=== PATIENT | female | born 1995 | race Caucasian/White ===

== ENCOUNTER 2022-09-24 17:39 | Outpatient (CLI) | payer OTHER, SELFPAY ==
[2022-09-24 17:48] VITALS: PULSE 92; O2SAT 98
[2022-09-24 17:51] VITALS: BP 117/69; PULSE 93; RESP 16; TEMP 36.9; O2SAT 98
--- NOTE | 2022-09-24 18:39 | PC.OBNST ---
NST Note NST Note Start: 09/24/22 17:42 Freq: ONCE Status: Active Protocol: Document 09/24/22 18:25 CUDDYH (Rec: 09/24/22 18:38 CUDDYH [id number]) NST Note 4 Para (# of births) 1 EDC 11/12/22 Gestational Age In Weeks & Days 33 Weeks & 0 Days High Risk Factors Diabetes - Gestational Insulin Patient Presented with Complaint(s) of Decreased movement Reactive Yes Appropriate for Gestational Age Yes RN Hcuddy Date 09/24/22 Reactive Yes Appropriate for Gestational Age Yes RN WKlotter Date 09/24/22 OB NST charge Yes Complete NST Note via Write Note Yes The provider's electronic signature indicates the NST is reactive/appropriate for gestational age. *Note to provider: If an addendum is required, open the patient's chart and click on the note under the Nurse/Allied Health tab.
== END 2022-09-24 18:25 | disposition home or self-care (01) ==
LOC: OB OUT 17:39 → OB 17:40
PROVIDERS: PCP Family Medicine; Visit Provider Family Medicine
DX: O36.8130 Decreased fetal movements, third trimester, not applicable or unspecified (principal); Z3A.33 33 weeks gestation of pregnancy
CPT/HCPCS: 59025; 99213

== ENCOUNTER 2022-10-06 19:11 | Outpatient (CLI) | payer OTHER, SELFPAY ==
[2022-10-06] VITALS (9 sets, daily range): BP systolic 103–116; BP diastolic 66–72; PULSE 90–104; RESP 16; TEMP 37.1; O2SAT 98
[2022-10-06 19:48] LABS: Basophils Percent Auto 0.3 % (0.0-3.0); Eosinophils Percent Auto 0.5 % (0.0-7.0); Hematocrit 34.7 % (33.0-51.0); Hemoglobin* 11.6 gm/dL (12.0-16.0); Immature Granulocytes Pct Auto 2.3 %; Mean Corpuscular HGB Conc 33 gm/dL (32-36); Mean Corpuscular Hemoglobin 28 pg (26-34); Mean Corpuscular Volume 85 fL (80-100); Monocytes Percent Auto 9.2 % (0.0-11.0); Neutrophils Percent Auto 71.7 % (42.0-72.0); Platelet Count* 267 K/uL (140-440); RDW Coefficient of Variation % 13.5 % (11.5-15.5); Red Blood Count 4.09 m/uL (4.00-5.20); Slide Review Reflex No
[2022-10-06 20:17] LABS: Alanine Aminotransferase* 61 U/L (4-35); Aspartate Amino Transferase* 35 U/L (12-35); Blood Urea Nitrogen* 11 mg/dL (5-24); Creatinine* 0.4 mg/dL (0.5-1.5); Estimated Glomerular Filt Rate 137 ml/min
[2022-10-06 20:32] LABS: Creatinine Urine 90.1 mg/dL; Total Protein Urine 20 mg/dL
--- NOTE | 2022-10-06 21:45 | PC.OBNST ---
NST Note NST Note Start: 10/06/22 19:23 Freq: ONCE Status: Active Protocol: Document 10/06/22 21:41 AVL (Rec: 10/06/22 21:44 AVL [id number]) NST Note 4 Para (# of births) 1 EDC 11/12/22 Gestational Age In Weeks & Days 34 Weeks & 5 Days High Risk Factors Diabetes - Gestational Insulin Patient Presented with Complaint(s) of Pain If Pain, describe location RUQ pain, epigastric Other Complaints Elevated labs, monitoring labs for HELLP Reactive Yes Appropriate for Gestational Age Yes RADHA Davenport RN Date 10/06/22 Reactive Yes Appropriate for Gestational Age Yes RADHA Lee RN Date 10/06/22 OB NST charge Yes Complete NST Note via Write Note Yes The provider's electronic signature indicates the NST is reactive/appropriate for gestational age. *Note to provider: If an addendum is required, open the patient's chart and click on the note under the Nurse/Allied Health tab.
== END 2022-10-06 21:24 | disposition home or self-care (01) ==
LOC: OB OUT 19:13 → OB 19:14
PROVIDERS: PCP Family Medicine; Visit Provider Surgery
DX: O24.419 Gestational diabetes mellitus in pregnancy, unspecified control (principal); Z3A.34 34 weeks gestation of pregnancy
CPT/HCPCS: 36415; 59025; 82565; 82570; 84156; 84450; 84460; 84520; 85025; 99213

== ENCOUNTER 2022-10-14 14:41 | Outpatient (CLI) | payer OTHER, SELFPAY ==
[2022-10-14] VITALS (25 sets, daily range): BP systolic 101–125; BP diastolic 60–81; PULSE 83–100; RESP 16; TEMP 36.7–37; O2SAT 97–98
[2022-10-14 15:40] LABS: Hemoglobin* 11.5 gm/dL (12.0-16.0); Mean Corpuscular HGB Conc 34 gm/dL (32-36); Mean Corpuscular Hemoglobin 29 pg (26-34); Mean Corpuscular Volume 84 fL (80-100); Platelet Count* 239 K/uL (140-440); Red Blood Count 4.03 m/uL (4.00-5.20); White Blood Count* 11.97 K/uL (4.50-11.00)
[2022-10-14] MEDS: PROMETHAZINE 25 MG TABLET PO (15:40)
[2022-10-14 15:56] LABS: Slide Review Reflex No
[2022-10-14 16:19] LABS: Total Protein Urine 16 mg/dL
[2022-10-14 16:21] LABS: Creatinine Urine 162.1 mg/dL
[2022-10-14 16:38] LABS: Alanine Aminotransferase* 68 U/L (4-35); Aspartate Amino Transferase* 47 U/L (12-35); Blood Urea Nitrogen* 11 mg/dL (5-24); Creatinine* 0.4 mg/dL (0.5-1.5); Estimated Glomerular Filt Rate 137 ml/min
[2022-10-14 16:47] LABS: INR 0.95 (0.91-1.10); Prothrombin Time 13.2 Seconds
[2022-10-14 17:13] LABS: Fibrinogen* 572 mg/dL (200-450)
[2022-10-14] MEDS: LACTATED RINGERS 1000 ML 1,000 ML 125 ML IV (18:03)
--- NOTE | 2022-10-14 18:10 | CRLHL7_ITS ---
For Patients: As a result of the Century Cures Act, medical imaging exams and procedure reports are released immediately into your electronic medical record. You may view this report before your referring provider. If you have questions, please contact your health care provider. HISTORY: Chest pressure COMPARISON: None available FINDINGS: A portable erect AP view of the chest was obtained at 1827 hours. The lungs are clear. No focal or diffuse infiltrates are present. The heart is normal in size. The mediastinum is normal in appearance. The osseous structures are normal in appearance for the patient`s age. IMPRESSION: Normal portable chest single view. Dictated by Kenny Henriquez MD @ 10/14/2022 7:19:31 PM (Electronically Signed)
--- NOTE | 2022-10-14 18:14 | PM.OBHPAP1 ---
OB - H&P; HPI Antepartum History of Present Illness Time Seen by Provider: 18:14 Date Seen: 10/14/22 Chief complaint: Maternity Narrative: Migdalia Cristobal is a 27 year old female at 35w6d who presents with headache from clinic. Patient has been having intermittent RUQ abdominal pain. She has had mildly elevated LFTs. Had a normal gallbladder US last week. She presented with a 3 day presentation of headache, unresolved by tylenol. Patient reports her Headache has been bothersome x 3 days. She has also had intermittent chest pressure and difficulty breathing. She has attributed this to her anxiety, but also worries she could be missing something. Denies edema or leg pain. She, during triage also developed mild tunnel vision like her peripheral vision was becoming blurry. She states her headache is worsening. Her chest pressure feels like there is something on her chest. It feels best to take a deep breath and hold it. She feels dizzy, not quite like vertigo, but like she might develop this. She has mild nausea. History of Present Dating criteria: other (11 week ultrasound) care: good care Ultrasounds: abnormal US findings Abnormal ultrasound findings: low lying placenta, possible accessory placental lobe complications comment: Patient had 2 miscarriages. ?Most recent one had partial molar pathology re Labs Blood type: O (+) positive Rubella: immune RPR/VDLR: nonreactive GBS status: unknown HBsAG: negative Review of Systems Status of ROS: Reports: 10 or more systems reviewed and unremarkable except as noted in History and below Const: Reports: fatigue; Denies: fever or chills Eyes: Reports: change in vision and blurry vision; Denies: light sensitivity ENMT: Reports: vertigo; Denies: throat pain, neck pain, throat swelling or difficulty swallowing Cardio: Reports: chest pain; Denies: palpitations, edema, swelling of feet/ankles or shortness of breath with exertion Resp: Denies: shortness of breath, cough, wheezing or pain on inspiration GI: Reports: abdominal pain (RUQ) and nausea; Denies: vomiting or difficulty swallowing : Denies: urinary frequency, urinary urgency, difficulty voiding, vaginal bleeding or vaginal discharge Musculo: Denies: neck pain Integ/Breast: Denies: rash or itching Neuro: Reports: vertigo Psych: Reports: anxiety and panic attacks Endo: Reports: fatigue Allergy/Immuno: Denies: throat swelling or wheezing Meds Home Medications and Allergies Home Medications Medication Instructions Recorded Confirmed Type Saccharomyces boulardii 250 mg 20,000 mmu cells PO QDAY 08/27/22 10/06/22 History capsule (Digest Probiotic (S.boulardii)) aspirin 81 mg chewable tablet 81 mg PO QDAY 08/27/22 10/06/22 History cetirizine 10 mg capsule (Zyrtec) 10 mg PO QDAY PRN 08/27/22 10/06/22 History docosahexaenoic acid 200 mg mg PO 08/27/22 08/27/22 History capsule ( DHA) famotidine 20 mg tablet (Pepcid) 20 mg PO BID 08/27/22 10/06/22 History fluoxetine 20 mg capsule 20 mg PO QDAY 08/27/22 10/06/22 History lysine 500 mg tablet (L-Lysine) 500 mg PO QDAY 08/27/22 10/06/22 History omega 8-vlf-qzn-fish oil 60 mg-90 1 cap PO QDAY 08/27/22 10/06/22 History mg-500 mg capsule (Fish Oil) Allergies Allergy/AdvReac Type Severity Reaction Status Date / Time acetaminophen [From Percocet] AdvReac Vomiting Verified 08/27/22 11:21 oxycodone [From Percocet] AdvReac Vomiting Verified 08/27/22 11:21 OB - H&P: Exam Physical Exam: Vital signs: Temp Pulse BP Pulse Ox 98.6 F 93 125/69 98 10/14/22 14:58 10/14/22 17:59 10/14/22 17:59 10/14/22 15:13 Constitutional: Constitutional: no acute distress and obese Routine HEENT Exam: Head: Present atraumatic Eye: Present EOMI and normal appearance; Absent conjunctival injection ENT: Present mucous membranes moist Routine Neck Exam: Neck: Present full ROM Routine Chest/Breast/Axilla Exam: Chest wall: Absent tenderness Routine Respiratory Exam: Respiratory: Present CTA bilaterally; Absent crackles, rales, accessory muscle use or respiratory distress Routine Cardiovascular Exam: Cardiovascular: RRR, S1 and S2 Detailed Abdominal Exam: Comments: gravid, minimally tender in RUQ Detailed Labor and Delivery Exam: Patient Gravid: yes Fetus (Single): Heart Rate Baseline: 135 Monitor Accelerations: Present Monitor Decelerations: None Alf Variability: Moderate (6-25) Routine Neurological Exam: Present alert and oriented X3 Routine Psychiatric Exam: Present anxious OB - Results Labs Labs: Short CBC 10/14/22 Range/Units 15:28 WBC 11.97 H (4.50-11.00) K/uL Hgb 11.5 L (12.0-16.0) gm/dL Hct 34.0 (33.0-51.0) % Plt Count 239 (140-440) K/uL BMP 10/14/22 15:28 BUN 11 Creatinine 0.4 L Liver Function 10/14/22 Range/Units 15:28 AST 47 H (12-35) U/L ALT 68 H (4-35) U/L OB - A/P Antepartum Assessment and Plan (1) : Problem details: at 35w6d. Status: Acute Assessment and Plan: I have discussed patient's care with perinatology (RAUL) and HEALTH INFORMATION DIRECTOR (Dr. Parker). Patient will be admitted for further monitoring. Planning on repeat when delivery is appropriate (2) Headache in : Status: Acute Assessment and Plan: - no improvement so far with IV fluids and tylenol 1000 mg - plan for Fiorcet next - Monitor BPs closely. Will repeat preeclampsia labs Q8H, but at this point does not meet criteria for preeclampsia. - Considered betamethasone, but was defered due to her gestational diabetes history (on insulin) - Preeclampsia assessment per nursing. (3) Chest pressure: Status: Acute Assessment and Plan: Chest Xray pending. EKG reassuring. - Will do doppler of LE bilaterally. (4) Elevated LFTs: Status: Acute Assessment and Plan: - had ultrasound of gallbladder last week which was normal. Pain in RUQ is intermittent. Will trend LFTs every 8 hours. If >2x upper limit of normal, would be concerning for possible progressing preeclampsia. (5) Gestational diabetes mellitus: Problem details: On NPH insulin 16 units at bedtime. Status: Acute Assessment and Plan: - q4H POC acuchecks - NPH 16 units - Diabetic diet (6) Anxiety: Status: Acute Assessment and Plan: - patient has increasing anxiety . Continue fluoxetine. - will give vistaril to see if that helps with anxiety tonight. Plan 70 minutes spent in coordination of care Will see patient in morning for further plan.
--- NOTE | 2022-10-14 18:44 | CRLHL7_ITS ---
For Patients: As a result of the Century Cures Act, medical imaging exams and procedure reports are released immediately into your electronic medical record. You may view this report before your referring provider. If you have questions, please contact your health care provider. INDICATION: Chest pressure, shortness of breath, chest pain with breathing TECHNIQUE: Ultrasound venous duplex lower extremity bilateral. Compression venous exam was performed using sullivan-scale, color Doppler, and spectral Doppler imaging. COMPARISON: None. FINDINGS: Sonographic imaging demonstrates the common femoral, deep femoral, superficial femoral, popliteal, posterior tibial and greater saphenous veins to be fully compressible with normal color Doppler blood flow in both lower extremities. IMPRESSION: Normal bilateral lower extremity venous ultrasound, no sign of deep venous thrombosis. Dictated by Shun De La Rosa MD @ 10/14/2022 8:13:34 PM (Electronically Signed)
[2022-10-14] MEDS: hydrOXYzine pamoate 25 MG CAPSULE 50 MG PO (19:06)
[2022-10-14] MEDS: BUTALB/ACETAMINOPHEN/CAFFEINE 1 EACH TABLET PO (20:37)
[2022-10-14] MEDS: FAMOTIDINE 20 MG TABLET PO (21:01)
[2022-10-15 00:05] VITALS: BP 110/64; PULSE 81; TEMP 36.6
[2022-10-15 00:17] LABS: Hematocrit 32.9 % (33.0-51.0); Hemoglobin* 11.1 gm/dL (12.0-16.0); Mean Corpuscular HGB Conc 34 gm/dL (32-36); Mean Corpuscular Hemoglobin 29 pg (26-34); Mean Corpuscular Volume 85 fL (80-100); Platelet Count* 205 K/uL (140-440); Red Blood Count 3.88 m/uL (4.00-5.20); White Blood Count* 10.73 K/uL (4.50-11.00)
[2022-10-15 00:21] LABS: Slide Review Reflex No
[2022-10-15 00:40] LABS: Aspartate Amino Transferase* 43 U/L (12-35); Creatinine* 0.4 mg/dL (0.5-1.5); Estimated Glomerular Filt Rate 137 ml/min
[2022-10-15 00:41] LABS: Alanine Aminotransferase* 65 U/L (4-35)
--- NOTE | 2022-10-15 00:57 | CRLHL7_ITS ---
For Patients: As a result of the Century Cures Act, medical imaging exams and procedure reports are released immediately into your electronic medical record. You may view this report before your referring provider. If you have questions, please contact your health care provider. INDICATION: Nonreactive nonstress test TECHNIQUE: Ultrasound OB pelvis transabdominal. Real-time usllivan-scale imaging of the fetus was performed. COMPARISON: None FINDINGS: Sonographic imaging demonstrates a single living intrauterine gestation. Fetus demonstrates a regular cardiac rate of 135 beats per minute. Fetus has a vertex orientation. The placenta lies posterior and to the left. The cervix was not visualized Amniotic fluid volume appears normal with a SDP of 6 0.1 cm cm. breathing movements, motion, and tone were all observed. IMPRESSION: Single viable intrauterine with a biophysical profile 05/19. Dictated by Brianda Higgins MD @ 10/15/2022 2:26:47 AM (Electronically Signed)
[2022-10-15] MEDS: LACTATED RINGERS 1000 ML 1,000 ML 125 ML IV (02:04)
[2022-10-15 04:37] LABS: Total Protein Urine 14 mg/dL
[2022-10-15 04:38] LABS: Creatinine Urine 70.8 mg/dL
[2022-10-15] MEDS: FLUOXETINE HCL 20 MG CAPSULE 40 MG PO (07:50)
[2022-10-15] MEDS: FAMOTIDINE 20 MG TABLET PO (07:51)
[2022-10-15] MEDS: MAGNESIUM OXIDE 400 MG TABLET PO (07:51)
[2022-10-15 09:15] LABS: Hematocrit 32.3 % (33.0-51.0); Hemoglobin* 10.8 gm/dL (12.0-16.0); Mean Corpuscular HGB Conc 33 gm/dL (32-36); Mean Corpuscular Hemoglobin 29 pg (26-34); Mean Corpuscular Volume 85 fL (80-100); Platelet Count* 182 K/uL (140-440); Red Blood Count 3.78 m/uL (4.00-5.20); White Blood Count* 9.98 K/uL (4.50-11.00)
[2022-10-15 09:24] LABS: Slide Review Reflex No
[2022-10-15 09:30] LABS: Alanine Aminotransferase* 65 U/L (4-35); Aspartate Amino Transferase* 45 U/L (12-35); Creatinine* 0.4 mg/dL (0.5-1.5); Estimated Glomerular Filt Rate 137 ml/min
[2022-10-15 09:32] VITALS: BP 115/62; PULSE 83; RESP 16; TEMP 36.4; O2SAT 99
--- NOTE | 2022-10-15 10:34 | P.DS_ITS ---
DS: Providers Provider Time Seen by Provider: 07:00 Date Seen: 10/15/22 Date of admission: 10/14/2022 Primary care physician: Lorna Kwan MD Admitting Clinician: Lorna Kwan Attending Physician on discharge: Lorna Kwan MD Date of Discharge: 10/15/22 DS: Diagnosis Discharge Diagnosis (1) : Status: Acute Problem details: admitted at 35w6d. is complicated by gestational diabetes on insulin. (2) Headache in : Status: Acute Problem details: Patient presented with headache in . Had some peripheral vision blurriness. Admitted for monitoring and rule out of preeclampsia. Patient was given Phenergen, fiorcet, IV Fluids. Headache improved from 5-6/10 to 2/10 and vision changes resolved. Blood pressures were within normal limits. Preeclampsia labs were assessed q8H and did not meet criteria for preeclampsia. (mild elevations only in LFTs). Discussed with perinatology who felt given improvement could be discharged to home with close follow up. (3) Chest pressure: Status: Acute Problem details: Patient developed chest pressure. EKG was reassuring. Chest xray was within no rmal limits not showing pneumonia or pulmonary edema. Doppler lower extremities were reassuring showing no DVT. She was given 50 mg of vistaril and had improvement in chest pressure, suggesting this was due to anxiety/panic. We have recently increased her prozac, she will continue 40 mg dosing. (4) Elevated LFTs: Status: Acute Problem details: Patient has had 2 weeks of elevated LFTs with intermittent RUQ pain. Abdominal ultrasound last week was within normal limits. Not meeting criteria for p reeclampsia (not double upper limit of normal). Continue to monitor. ?MATUTE. (5) Gestational diabetes mellitus: Status: Acute Problem details: On NPH insulin 16 units at bedtime. Levemir was substituted due to no NPH in hospital. (6) Anxiety: Status: Acute Problem details: Patient has ongoing anxiety. continue SSRI. Discharge Plan Discharge Disposition: Home, Self-Care Primary Care Provider: Lorna Kwan Patient Instructions: Preeclampsia During (GEN) Activity Restrictions/Additional Instructions: Patient verbalized understanding of reviewed discharge instructions. Discharge Orders: Discharge Order (Routine); Ordered 10/15/22 Ordered By: Lorna Kwan Discharge Medications: Continued omega 0-bno-emo-fish oil [Fish Oil] 60-90-500 mg capsule 1 cap PO QDAY fluoxetine 20 mg capsule 20 mg PO QDAY Zyrtec 10 mg capsule 10 mg PO QDAY PRN famotidine [Pepcid] 20 mg tablet 20 mg PO BID Saccharomyces boulardii [Digest Probiotic (S.boulardii)] 250 mg capsule 20,000 mmu cells PO QDAY aspirin 81 mg tablet,chewable 81 mg PO QDAY DHA 200 mg capsule PO lysine [L-Lysine] 500 mg tablet 500 mg PO QDAY Forms: [facility] Info Instructions Hospital Course Course Hospital Course: Patient was admitted and worked up for headache, chest pain. Fortunately, had improvement overnight. Labs Labs: Laboratory Tests 10/15/22 10/15/22 10/15/22 Range/Units 09:06 09:06 04:15 WBC 9.98 (4.50-11.00) K/uL RBC 3.78 L (4.00-5.20) m/uL Hgb 10.8 L (12.0-16.0) gm/dL Hct 32.3 L (33.0-51.0) % MCV 85 (80-100) fL MCH 29 (26-34) pg MCHC 33 (32-36) gm/dL Plt Count 182 (140-440) K/uL INR (0.91-1.10) Fibrinogen (200-450) mg/dL BUN (5-24) mg/dL Creatinine 0.4 L (0.5-1.5) mg/dL Estimated GFR 137 ml/min AST 45 H (12-35) U/L ALT 65 H (4-35) U/L Urine Creatinine 70.8 mg/dL Protein/Creatinin Ratio 0.10 (0-0.19) Urine Total Protein 14 mg/dL 10/15/22 10/15/22 10/14/22 Range/Units 00:10 00:10 15:28 WBC 10.73 (4.50-11.00) K/uL RBC 3.88 L (4.00-5.20) m/uL Hgb 11.1 L (12.0-16.0) gm/dL Hct 32.9 L (33.0-51.0) % MCV 85 (80-100) fL MCH 29 (26-34) pg MCHC 34 (32-36) gm/dL Plt Count 205 (140-440) K/uL INR (0.91-1.10) Fibrinogen (200-450) mg/dL BUN 11 (5-24) mg/dL Creatinine 0.4 L 0.4 L (0.5-1.5) mg/dL Estimated GFR 137 137 ml/min AST 43 H 47 H (12-35) U/L ALT 65 H 68 H (4-35) U/L Urine Creatinine mg/dL Protein/Creatinin Ratio (0-0.19) Urine Total Protein mg/dL 10/14/22 10/14/22 10/14/22 Range/Units 15:28 15:28 15:12 WBC 11.97 H (4.50-11.00) K/uL RBC 4.03 (4.00-5.20) m/uL Hgb 11.5 L (12.0-16.0) gm/dL Hct 34.0 (33.0-51.0) % MCV 84 (80-100) fL MCH 29 (26-34) pg MCHC 34 (32-36) gm/dL Plt Count 239 (140-440) K/uL INR 0.95 (0.91-1.10) Fibrinogen 572 H (200-450) mg/dL BUN (5-24) mg/dL Creatinine (0.5-1.5) mg/dL Estimated GFR ml/min AST (12-35) U/L ALT (4-35) U/L Urine Creatinine 162.1 mg/dL Protein/Creatinin Ratio 0.00 (0-0.19) Urine Total Protein 16 mg/dL OB Problem List Additional Plan (1) : Problem details: admitted at 35w6d. is complicated by gestational diabetes on insulin. Status: Acute (2) Headache in : Problem details: Patient presented with headache in . Had some peripheral vision blurriness. Admitted for monitoring and rule out of preeclampsia. Patient was given Phenergen, fiorcet, IV Fluids. Headache improved from 5-6/10 to 2/10 and vision changes resolved. Blood pressures were within normal limits. Preeclampsia labs were assessed q8H and did not meet criteria for preeclampsia. (mild elevations only in LFTs). Discussed with perinatology who felt given im provement could be discharged to home with close follow up. Status: Acute (3) Chest pressure: Problem details: Patient developed chest pressure. EKG was reassuring. Chest xray was within normal limits not showing pneumonia or pulmonary edema. Doppler lower extremities were reassuring showing no DVT. She was given 50 mg of vistaril and had improvement in chest pressure, suggesting this was due to anxiety/panic. We have recently increased her prozac, she will continue 40 mg dosing. Status: Acute (4) Elevated LFTs: Problem details: Patient has had 2 weeks of elevated LFTs with intermittent RUQ pain. Abdominal ultrasound last week was within normal limits. Not meeting criteria for preeclampsia (not double upper limit of normal). Continue to monitor. ?MATUTE. Status: Acute (5) Gestational diabetes mellitus: Problem details: On NPH insulin 16 units at bedtime. Levemir was substituted due to no NPH in hospital. Status: Acute (6) Anxiety: Problem details: Patient has ongoing anxiety. continue SSRI. Status: Acute Plan After discussion with perinatology, given Chest pain, vision changes have resolved and headache has improved, felt reasonable to discharge with close follow up. Patient's baby had reassuring NST with BPP 8/8 during hospital stay. Did not meet criteria for preeclampsia. Will do close hospital follow up. Did feel that if she worsens again given she is now 36 weeks, would be reasonable to consider delivery. She is planned repeat . DS: Summary Vital Signs Vital Signs: Vital Signs Temp Pulse Resp BP Pulse Ox 10/15/22 09:32 97.6 F 83 16 115/62 99 10/14/22 21:08 98.0 F 16 106/68 97 10/15/22 00:05 97.9 F 81 110/64 10/14/22 19:29 86 104/63 10/14/22 19:14 83 101/60 10/14/22 19:00 86 105/64 10/14/22 18:44 90 108/63 10/14/22 18:30 83 111/65 10/14/22 18:14 90 115/69 10/14/22 17:59 93 125/69 10/14/22 17:44 91 117/67 10/14/22 17:31 89 124/81 10/14/22 17:30 88 121/76 10/14/22 17:14 95 113/71 10/14/22 17:00 88 107/69 10/14/22 16:45 83 115/71 10/14/22 16:29 84 103/68 10/14/22 16:14 85 110/68 10/14/22 15:59 87 108/68 10/14/22 15:44 91 108/67 10/14/22 15:29 95 110/67 10/14/22 15:14 90 112/69 10/14/22 15:13 98 10/14/22 15:08 98 10/14/22 15:03 98 10/14/22 14:59 96 113/71 10/14/22 14:58 98 10/14/22 14:58 98.6 F Discharge Examination General appearance: alert, in no apparent distress and anxious Physical Examination findings: Heart: RRR Lungs: CTAB Abdomen: Gravid, nontender Ext: trace edema bilaterally Neuro: DTR 2+, no clonus Psych: Anxious
--- NOTE | 2022-10-15 11:58 | PC.OBNST ---
NST Note NST Note Start: 10/15/22 11:53 Freq: Status: Active Protocol: Document 10/15/22 10:30 EDSON (Rec: 10/15/22 11:58 [facility] [id number]) NST Note 4 Para (# of births) 1 EDC 11/12/22 Gestational Age In Weeks & Days 36 Weeks & 0 Days High Risk Factors High Blood Pressure - Gestational Patient Presented with Complaint(s) of Headache Other Complaints pt was having headache, blurred vision, and upper right quadrant pain. Reactive Yes Appropriate for Gestational Age Yes RADHA Odell Date 10/15/22 Reactive Yes Appropriate for Gestational Age Yes RADHA Odell Date 10/15/22 OB NST charge Yes Complete NST Note via Write Note Yes The provider's electronic signature indicates the NST is reactive/appropriate for gestational age. *Note to provider: If an addendum is required, open the patient's chart and click on the note under the Nurse/Allied Health tab.
== END 2022-10-15 11:25 | disposition home or self-care (01) ==
LOC: OB OUT 14:41 → OB 14:43
PROVIDERS: PCP Family Medicine; Visit Provider Family Medicine
DX: O26.899 Other specified pregnancy related conditions, unspecified trimester (principal); O24.419 Gestational diabetes mellitus in pregnancy, unspecified control; R51.9 Headache, unspecified; R07.89 Other chest pain; R79.89 Other specified abnormal findings of blood chemistry; F41.9 Anxiety disorder, unspecified; Z3A.36 36 weeks gestation of pregnancy
CPT/HCPCS: 36415; 59025; 71045; 76819; 82565; 82570; 82962; 84156; 84450; 84460; 84520; 85027; 85384; 85610; 93005; 93970; 99213; A9270; J7120

== ENCOUNTER 2022-10-22 10:45 | Outpatient (CLI) | payer OTHER, SELFPAY ==
--- NOTE | 2022-10-22 11:30 | CRLHL7_ITS ---
For Patients: As a result of the Century Cures Act, medical imaging exams and procedure reports are released immediately into your electronic medical record. You may view this report before your referring provider. If you have questions, please contact your health care provider. INDICATION: REEVALUATE PLACENTA LOCATION COMPARISON: 10/15/2022 TECHNIQUE: Real time sullivan scale imaging of the fetus was performed. FINDINGS: The cervix is closed and measures 3.2 cm. The placenta is posterior and is located 3.4 cm from the internal cervical os. heart rate 163 beats per minute. Single deepest pocket of amniotic fluid is 4.6 cm. Normal appearance of the nose and lips. Normal profile. A trace pericardial effusion may be present. IMPRESSION: Placenta is posterior located 3.4 cm from the internal cervical os. No previa. Possible trace pericardial effusion measuring 5 millimeters. Dictated by Paulino Collins MD @ 10/22/2022 11:58:07 AM (Electronically Signed)
== END 2022-10-22 10:46 | disposition home or self-care (01) ==
LOC: US 10:46
PROVIDERS: PCP Family Medicine; Visit Provider Obstetrics & Gynecology
DX: O24.419 Gestational diabetes mellitus in pregnancy, unspecified control (principal); Z3A.35 35 weeks gestation of pregnancy
CPT/HCPCS: 76816

== ENCOUNTER 2022-10-29 05:01 | Inpatient (IN) | payer OTHER, SELFPAY ==
[2022-10-29] VITALS (44 sets, daily range): BP systolic 98–143; BP diastolic 6–87; PULSE 66–117; RESP 16–18; TEMP 36.5–37.4; O2SAT 96–99; BMI 73.4
[2022-10-29] MEDS: LACTATED RINGERS 1000 ML 1,000 ML 125 ML IV (05:50)
[2022-10-29 06:31] LABS: SARS PCR* Negative SARS-CoV-2 (Negative)
[2022-10-29 07:04] LABS: Basophils Percent Auto 0.3 % (0.0-3.0); Eosinophils Percent Auto 0.4 % (0.0-7.0); Hemoglobin* 12.3 gm/dL (12.0-16.0); Immature Granulocytes Pct Auto 1.6 %; Lymphocytes Percent Auto 19.9 % (20-44); Mean Corpuscular HGB Conc 34 gm/dL (32-36); Mean Corpuscular Hemoglobin 29 pg (26-34); Mean Corpuscular Volume 84 fL (80-100); Monocytes Percent Auto 9.7 % (0.0-11.0); Neutrophils Percent Auto 68.1 % (42.0-72.0); Platelet Count* 218 K/uL (140-440); RDW Coefficient of Variation % 14.1 % (11.5-15.5); Red Blood Count 4.28 m/uL (4.00-5.20); White Blood Count* 11.67 K/uL (4.50-11.00)
[2022-10-29 07:08] LABS: Slide Review Reflex No
--- NOTE | 2022-10-29 07:21 | W.PM.LDBA ---
Subjective History of Present Illness Date Seen: 10/29/22 Narrative: Patient is being admitted to Labor and Delivery for repeat delivery. She is a 27 year old at 38 0/7 weeks gestation. Her full history and physical was dictated by Dr. Kwan on 10/22/22 . Please see this for details. Ob Problem List: 1. GDM insulin controlled- FBS on 10/30/22 and 2hrGTT at 6 weeks pp 2. Transaminitis, not on severe range-will repeat inpatient, follow up at 6 weeks postpartumas well 3. Anxiety-Tx. with fluoxetine 4. Hx section x1, D&C x2 OB - Problem Based A/P Additional Plan (1) : Problem details: admitted at 35w6d. is complicated by gestational diabetes on insulin. Status: Acute Plan Repeat delivery. OB Exam Physical Exam Vital signs: Temp Pulse BP Pulse Ox 98.5 F 90 112/70 97 10/29/22 06:20 10/29/22 05:33 10/29/22 05:33 10/29/22 05:34 Narrative: NST: 130bpm/mminimal variability/positive accelerations/no decelerations/irregular uterine contractions FBS:99
[2022-10-29] MEDS: CEFAZOLIN 2 GM INJ IVP (07:30)
[2022-10-29] MEDS: TRANEXAMIC ACID 100 MG/ML INJ 1000 MG IV (07:50)
--- NOTE | 2022-10-29 08:02 | W.ANESCHARGE ---
Anesthesia Charges Start Date/Time Anesthesia Start Date: 10/29/22 Anesthesia Start Time: 07:15 Stop Date/Time Anesthesia Stop Date: 10/29/22 Anesthesia Stop Time: 08:42 Summary Emergency: No
[2022-10-29] MEDS: KETOROLAC 30 MG/ML inj IVP ×3 (08:17→20:10)
--- NOTE | 2022-10-29 08:22 | PM.OBPRCCS ---
Procedure Pre-op/Post-op diagnoses: Pre-Op/Post-Op Diagnoses Preop diagnosis: History of delivery x 1, desiring repeat delivery GDM insulin controlled Transaminitis, concerns for hypertensive disorder of Post op diagnosis:Same, now delivered Procedure Done: only Procedure Details: Procedures Operation Date: 10/29/22 07:00 Actual Procedure Side Surgeon p Repeat Section Elsa Marie MD Estimated blood loss (mL): 653 Disposition: floor Anesthesia type: Spinal Complications: None Narrative: PREOPERATIVE DIAGNOSES: 1. Intrauterine at 38 0/7 weeks' gestation. 2. History of prior low transverse section x1, desiring repeat. 3. GDM, insulin controlled 4. Transaminitis, concern for hypertensive disorder of POSTOPERATIVE DIAGNOSES: Same, now delivered NAME OF PROCEDURE: Repeat low transverse section. Lysis of adhesions. ANESTHESIA: Spinal. COMPLICATIONS: None. ESTIMATED BLOOD LOSS: 653 mL. DRAINS: Tyson to gravity. FINDINGS: Live-born female , cephalic presentation, Apgars 8 and 9 at 1 and 5 minutes respectively. weight 6 pounds 14 ounces. Anterior uterine wall with small mike embedded in a vesicle like particle,otherwise grossly normal tubes, and ovaries. Dense adhesions between fascia, rectus muscles, omentum, anterior peritoneum. PROCEDURE: After obtaining informed consent, the patient was taken to the operating room where spinal anesthesia was obtained and found to be adequate. She was prepared and draped in the normal sterile fashion in the dorsal supine position with a leftward tilt. A Pfannenstiel skin incision was made with a scalpel along the line of the patient's previous Pfannenstiel scar. This incision was carried down to the underlying layer of fascia with the scalpel. The fascia was incised in the midline and the incision extended laterally. The superior and inferior aspects of the fascial incision were grasped with Josh clamps, elevated and the underlying rectus muscles dissected off sharply and with electrocautery. This dissection took an increased amount of time given the dense adhesions. The rectus muscles were then in the midline. Omental adhesions to the anterior peritoneum were coagulated and cut, hemostasis secured. The Manny O retractor was then placed into the incision. The lower uterine segment was then incised in a transverse fashion with the scalpel. Upon entry into the uterus, clear amniotic fluid was noted. The uterine incision was extended cephalo caudally with blunt finger fractionation. The infant's head was delivered atraumatically, followed by the remainder of the infant's body. The nose and mouth were suctioned with the bulb suction. The cord was doubly clamped and cut, and the infant was handed off the field to warmer for evaluation. The placenta was delivered spontaneously with umbilical cord traction and fundal massage. The uterus was cleared of all clots and debris. The uterine incision was reapproximated in a running locking fashion with a 0 Vicryl suture. A 2nd layer of the same suture was used to imbricate in horizontal fashion. Allis clamp utilized to grasp vesicle like structure were small mike were seen to be attached to uterus and utilizing cautery this was coagulated and removed. Hemostasis was assured. The gutters were inspected and cleared of blood clots. All instruments and retractors were removed. The subfascial tissues were carefully inspected and hemostasis assured. The fascia was reapproximated in a running fashion with a looped 0 Vicryl suture. The subcutaneous tissues were copiously irrigated. Hemostasis was assured. The subcutaneous fat layer was reapproximated with interrupted sutures of 3-0 Vicryl. The skin was closed in a subcuticular fashion with 4-0 Monocryl. LiquiBand and dressing were applied. The patient tolerated the procedure well. Sponge, lap, needle, and instrument counts were reported as correct x2. The patient was taken to the recovery room, awake, and in stable condition. She did receive 2 grams of IV Ancef preoperatively and 1g of TXA after baby was delivered.
--- NOTE | 2022-10-29 08:44 | W.PM.NB ---
Nerve Block Nerve Block Time Seen by Provider: 08:34 Date Seen: 10/29/22 Type of block requested by surgeon for post-operative analgesia: TAP Side: bilateral Time out performed: Yes Verification of patient name: Yes Verification of date of : Yes Site marking: site marked Name of person performing procedure: Pepe Continuous monitoring Was continuous monitoring of O2 sat, B/P, secured entrance monitor, recorded every 15 minutes?: Yes Procedure Checklist: sterile prep, needles and gloves Ultrasound guided. Images saved: Yes Medications given in 5ml increments after negative aspiration: Marcaine %: 0.25 mL: 30 Needle gauge: 20 and Exparel mL: 10 Patient tolerated procedure well: Yes Additional comments: Needle noted adjacent to nerve Block Charges Block Charge (with Pro Fee): TAP Bilateral Use of Ultrasound Machine for Block: Yes- US Guidance/pain block
--- NOTE | 2022-10-29 08:45 | W.ANESCHARGE ---
Anesthesia Charges Start Date/Time Anesthesia Start Date: 10/29/22 Anesthesia Start Time: 07:15 Stop Date/Time Anesthesia Stop Date: 10/29/22 Anesthesia Stop Time: 08:42 Summary Emergency: No
[2022-10-29] MEDS: ACETAMINOPHEN 500 MG TABLET 1000 MG PO ×2 (11:17→18:57)
[2022-10-30] VITALS (7 sets, daily range): BP systolic 97–123; BP diastolic 65–77; PULSE 86–90; RESP 16; TEMP 36.7–37.1; O2SAT 97
[2022-10-30] MEDS: ACETAMINOPHEN 500 MG TABLET 1000 MG PO ×4 (01:26→23:56)
[2022-10-30] MEDS: KETOROLAC 30 MG/ML inj IVP ×3 (02:14→14:27)
[2022-10-30 05:17] LABS: Hemoglobin* 9.6 gm/dL (12.0-16.0)
[2022-10-30 05:32] LABS: Alanine Aminotransferase* 87 U/L (4-35); Aspartate Amino Transferase* 56 U/L (12-35)
[2022-10-30] MEDS: DOCUSATE SODIUM 100 MG CAPSULE PO (08:04)
[2022-10-30] MEDS: FLUOXETINE HCL 20 MG CAPSULE 40 MG PO (08:05)
--- NOTE | 2022-10-30 08:41 | PM.OBPNCS1 ---
OB - PN: A/P Assessment and Plan (1) care and examination immediately after delivery: Status: Acute (2) Status post delivery: Status: Acute (3) Lactating mother: Status: Acute Plan POD1 Lactating Mother Plan day: 1 Plan: routine postop care Comments: Lactating mother. May see if desired. Anticipate discharge tomorrow (Thursday) or Thursday. OB - PN: Subj Subjective Date Seen: 10/30/22 Patient comments: no complaints Narrative: Migdalia is a 27 y.o. who was admitted to [facility] for repeat c/s due to elevated liver enzymes with unknown cause. ?She had an uncomplicated .The patient feels well.? The pain is well controlled with current medications.? She has no new complaints.? Urinary output is adequate and currently still has catheter in place. Planning removal this morning.? Has a good appetite, is tolerating a general diet, is passing flatus, and has not yet had a bowel movement.? Has scant amount of rubra lochia.? She has not yet been ambulating, plans to be up and moving today. She is and reports it is going well.? OB - PN: Obj Exam Physical Exam: Vital signs: Temp Pulse Resp BP Pulse Ox O2 Del Method 98.0 F 87 16 123/77 97 10/30/22 03:00 10/30/22 03:00 10/30/22 03:00 10/30/22 03:00 10/30/22 03:00 10/30/22 03:00 Constitutional: Constitutional: no acute distress and cooperative Routine Respiratory Exam: Respiratory: Present CTA bilaterally Routine Cardiovascular Exam: Cardiovascular: Present RRR Routine Abdominal Exam: Abdominal: Present soft Fundus: Present firm Routine Exam: Comments: Mild edema present. Routine Extremities Exam: Extremities: Present full ROM and normal inspection Routine Psychiatric Exam: Psychiatric: Present normal affect and cooperative Wound Management: Method: other (Abdominal lower transverse incision) Examination: Present dressed, clean, dry and intact Urinary Catheter Management: Urethral: Cath placed during this visit: yes Urethral indwelling: Yes Reason for continuing: surgical procedure Insertion date: 10/29/22 Insertion time: 07:31 OB - PN: Obj Data Labs Labs: Laboratory Results - last 24 hr 10/30/22 10/30/22 05:10 05:10 Hgb 9.6 L AST 56 H ALT 87 H
[2022-10-30 13:25] LABS: Basophils Absolute Auto 0.02 K/uL (0.00-0.30); Basophils Percent Auto 0.2 % (0.0-3.0); Eosinophils Absolute Auto 0.12 K/uL (0.00-0.50); Eosinophils Percent Auto 1.1 % (0.0-7.0); Hematocrit 29.6 % (33.0-51.0); Hemoglobin* 9.9 gm/dL (12.0-16.0); Immature Granulocytes Abs Auto 0.15 K/uL (0.00-0.30); Immature Granulocytes Pct Auto 1.4 %; Lymphocytes Percent Auto 16.4 % (20-44); Mean Corpuscular HGB Conc 33 gm/dL (32-36); Mean Corpuscular Hemoglobin 29 pg (26-34); Mean Corpuscular Volume 85 fL (80-100); Monocytes Percent Auto 5.9 % (0.0-11.0); Platelet Count* 217 K/uL (140-440); RDW Coefficient of Variation % 14.4 % (11.5-15.5); Red Blood Count 3.47 m/uL (4.00-5.20); White Blood Count* 10.77 K/uL (4.50-11.00)
[2022-10-30 13:32] LABS: Slide Review Reflex No
[2022-10-30 13:41] LABS: Aspartate Amino Transferase* 55 U/L (12-35); Blood Urea Nitrogen* 9 mg/dL (5-24); Creatinine* 0.5 mg/dL (0.5-1.5); Est. Creatinine Clearance* 143.36; Estimated Glomerular Filt Rate 130 ml/min
[2022-10-30 13:42] LABS: Alanine Aminotransferase* 88 U/L (4-35); Lactate Dehydrogenase* 264 U/L (120-246)
[2022-10-30] MEDS: LANOLIN CREAM 1 APPLIC TOPICAL (17:32)
[2022-10-30] MEDS: IBUPROFEN 600 MG TABLET PO (20:32)
[2022-10-31 00:45] VITALS: BP 124/81; PULSE 89; RESP 16; TEMP 36.9; O2SAT 98
[2022-10-31] MEDS: IBUPROFEN 600 MG TABLET PO ×3 (02:34→15:12)
[2022-10-31 05:53] LABS: Alanine Aminotransferase* 68 U/L (4-35); Aspartate Amino Transferase* 47 U/L (12-35)
--- NOTE | 2022-10-31 08:20 | PM.OBDSCS1 ---
DS: Providers Provider Date Seen: 10/31/22 Date of admission: 10/29/22 05:01 Primary care physician: Lorna Kwan MD Admitting Clinician: Elsa Marie MD Attending Physician on discharge: Elsa Marie MD Date of Discharge: 10/31/22 Exam Narrative: Exam Narrative: GENERAL APPEARANCE:? normal affect, alert, no distress? MOOD:? appropriate? CHEST:? clear to auscultation and percussion? HEART:? regular rate and rhythm? ABDOMEN:? soft, non-tender the uterine fundus is 2 cm Below Umbilicus, Midline and is appropriate for the stage of recovery.?Incison is well apporminated without discharge, redness or warmth. There is some puckering on the right side. EXTREMITIES:? normal and no edema? Patient has no complaints? No active bleeding?? Doing well?? She is requesting discharge home.? Const: Vital Signs, click to edit/add: Vital Signs - 24 hr 10/30/22 08:42 10/30/22 12:03 10/30/22 16:34 Temperature 98.6 F 98.6 F 98.8 F Pulse Rate [Pulse Oximeter] 87 86 90 Respiratory Rate 16 16 16 Blood Pressure [Ri ght Arm] 109/72 113/77 97/65 Pulse Oximetry 97 97 97 Oxygen Delivery Me thod Room Air Room Air Room Air 10/30/22 08:42 10/31/22 00:45 Temperature 98.5 F Pulse Rate [Pulse Oximeter] 89 Respiratory Rate 16 16 Blood Pressure [Ri ght Arm] 124/81 Pulse Oximetry 98 Oxygen Delivery Me thod Room Air Documenting provider has reviewed patient's vital signs: yes DS: Data Data Completed and Pending Labs on day of discharge: Labs from last 24 hours 10/31/22 10/30/22 10/30/22 05:15 13:16 13:16 WBC RBC Hgb Hct MCV MCH MCHC RDW Coeff of Pearl Plt Count Neut % (Auto) Lymph % (Auto) [place] % (Auto) Eos % (Auto) Baso % (Auto) Neut # (Auto) Lymph # (Auto) [place] # (Auto) Eos # (Auto) Baso # (Auto) BUN 9 Creatinine 0.5 Estimated Creat Clear 143.36 Estimated GFR 130 AST 47 H 55 H ALT 68 H 88 H Lactate Dehydrogenase 264 H Total Bile Acids Pending 10/30/22 13:16 WBC 10.77 RBC 3.47 L Hgb 9.9 L Hct 29.6 L MCV 85 MCH 29 MCHC 33 RDW Coeff of Pearl 14.4 Plt Count 217 Neut % (Auto) 75.0 H Lymph % (Auto) 16.4 L [place] % (Auto) 5.9 Eos % (Auto) 1.1 Baso % (Auto) 0.2 Neut # (Auto) 8.10 H Lymph # (Auto) 1.80 [place] # (Auto) 0.60 Eos # (Auto) 0.12 Baso # (Auto) 0.02 BUN Creatinine Estimated Creat Clear Estimated GFR AST ALT Lactate Dehydrogenase Total Bile Acids OB - DS: Summary Hospital Course Hospital Course: Patient is a 27year old, G 4 now P 3? admitted on 10/29/22 at 38 Weeks, 0 Days gestation for repeat .? She had an uncomplicated delivery.? She delivered a viable female .? She is breast feeding and reports things are not going well. She is tearful stating that baby is having a difficult time latching because she is early gestation.? the patient has done well.? Her pain is well controlled with current medications.? She has no new complaints.? Vitals have been stable. She has remained afebrile. She is voiding without difficulty. She is passing gas and has not had a bowel movement. She is ambulating and denies any dizziness. She is planning condoms for control. Hemoglobin is low and she will discharge on PO iron supplementation.??? Peripartum Data Procedures: Procedures Operation Date: 10/29/22 07:00 Actual Procedure Side Surgeon p Repeat Section Elsa Marie MD complications: none Infant Gender: Female Discharge Plan: Home Status at Discharge Functional status at discharge: independent ambulation Overall status at discharge: patient is progressing back to baseline Time Spent with Patient Time attestation: Total time spent providing and/or coordinating discharge services: Discharge Plan Discharge Disposition: Home, Self-Care Date of Admission: 10/29/22 05:01 Attending Provider on Discharge: Renetta VanegasJohnathon Primary Care Provider: Lorna Kwan Condition: Stable Anticipated Discharge Date/Time: 10/31/22 10:00 Discharge Medications: New docusate sodium 100 mg Capsule 100 mg PO DAILY Qty: 90 0RF Rx Instructions: Take 1-2 tablets as needed daily for constipation. ferrous sulfate 325 mg (65 mg iron) Tablet 325 mg PO DAILYWM Qty: 90 0RF ibuprofen 600 mg Tablet 600 mg PO Q6H PRN (Reason: Pain) Qty: 100 0RF oxycodone 5 mg tablet 5 mg PO Q6H PRN (Reason: pain) Qty: 14 0RF Continued omega 8-uyv-xvg-fish oil [Fish Oil] 60-90-500 mg capsule 1 cap PO QDAY fluoxetine 20 mg capsule 40 mg PO QDAY Zyrtec 10 mg capsule 10 mg PO QDAY PRN Saccharomyces boulardii [Digest Probiotic (S.boulardii)] 250 mg capsule 20,000 mmu cells PO QDAY DHA 200 mg capsule 200 mg PO DAILY lysine [L-Lysine] 500 mg tablet 500 mg PO QDAY Discontinued famotidine [Pepcid] 20 mg tablet 20 mg PO BID insulin NPH isoph U-100 human 100 unit/mL (3 mL) insulin pen 20 unit subcut QAM Discharge Orders: Discharge Order (Routine); Ordered 10/31/22 Ordered By: Bernadette Murillo Patient Education: (DC) Activity Detail: Discharge instructions were reviewed with the patient including signs and symptoms of infection and home going medications. Activity restrictions: Lifting Restrictions: 20 pounds for 6 weeks No high-impact or core exercises for 6 weeks. No not submerge incision under water X 2 weeks Nothing vaginally for 6 weeks: no tampons or intercourse Do not drive while taking narcotic pain medication (oxycodone): 1-2 weeks Off Work or School for a minimum of 8 weeks NO no restriction for: walking or walking up/down stairs. Symptoms to report to doctor: -Bleeding that saturates more than one pad per hour -Passing clots larger than the size of a golf ball -Pain not relieved by prescribed medication -Fever above 100.4 degrees Fahrenheit -A foul vaginal odor -Difficulty in emotions, mood and functions -Thoughts of hurting yourself and/or -Painful, reddened area in your breast -Any drainage, redness or tenderness in your IV/epidural site -Severe headache that doesn't improve after taking medications -Changes in vision, including temporary loss of vision, blurred vision, and/or light sensitivity -Upper abdominal pain (usually under ribs on the right side) -Decrease in urination or painful, frequent urinating -Chest pain -Shortness of breath -Tenderness or pain with redness and/swelling in the calf(s) of your leg Follow up an incision check: 1-[address] delivery [address] Dumont. Follow Up appointments: 1. Optional 2 week visit: Screen for anxiety/depression, discuss control options, answer questions regarding infant care. 2. 6 week visit for physical exam. consultation services are available to all mothers and babies for the first year after delivery. To make an appointment, please call [phone]. Follow Up Appointments: [facility] [Provider Group] Lorna Kwan MD [Primary Care Provider] - Forms: [email or web address] Info Instructions
[2022-10-31] MEDS: FLUOXETINE HCL 20 MG CAPSULE 40 MG PO (08:21)
[2022-10-31] MEDS: DOCUSATE SODIUM 100 MG CAPSULE PO (08:22)
[2022-10-31] MEDS: FERROUS SULFATE 325 MG TABLET PO (08:22)
[2022-10-31 10:00] VITALS: BP 120/85; PULSE 95; RESP 16; TEMP 36.9; O2SAT 98
[2022-10-31] MEDS: ACETAMINOPHEN 500 MG TABLET 1000 MG PO (16:53)
[2022-10-31 17:00] VITALS: BP 122/78; PULSE 102; RESP 18; TEMP 36.7; O2SAT 98
[2022-10-31 22:07] LABS: Bile Acids, Total 5 umol/L (0-10)
== END 2022-10-31 17:00 | disposition home or self-care (01) | DRG 788 ==
PROVIDERS: Admitting Provider Obstetrics & Gynecology; PCP Family Medicine; Visit Provider Obstetrics & Gynecology
PROC: 10D00Z1 Extraction of Products of Conception, Low, Open Approach (ICD-10-PCS; CPT 59514; principal; 2022-10-29 07:00)
DX: O34.211 Maternal care for low transverse scar from previous cesarean delivery (principal); O24.424 Gestational diabetes mellitus in childbirth, insulin controlled; F41.9 Anxiety disorder, unspecified; R74.01 Elevation of levels of liver transaminase levels; Z3A.38 38 weeks gestation of pregnancy; Z37.0 Single live birth
CPT/HCPCS: 01961; 36415; 64488; 76942; 82239; 82565; 83615; 84450; 84460; 84520; 85018; 85025; 86850; 86900; 86901; 87635; 88307; A9270; C9290; J0690; J1885; J2250; J2274; J2370; J2405; J2590; J3490; J7120

== ENCOUNTER 2023-04-10 13:01 | Outpatient (CLI) | payer OTHER, SELFPAY ==
--- NOTE | 2023-04-10 17:00 | P.LACCB_ITS ---
Consult Note - Mom Date of Visit Date of visit: 04/10/23 custom decorating consultant: Sakina Avalos Visit Code: Visit Patient's Information Phone number: [phone] : 4 Para: 2 Allergies oxycodone [From Percocet] Adverse Reaction (Verified 10/22/22 10:05) Vomiting Mother's Medical History: Medical History (Updated 11/08/22 @ 00:00 by Background Daemon) Anxiety ?F41.9 - Anxiety disorder, unspecified (ICD-10) Gestational diabetes mellitus ?O24.419 - Gestational diabetes mellitus in , unspecified control (ICD-10) Type of Contraception: to get a vasectomy Work Plans: currently working Delivery Information Delivery type: Repeat Section Weeks Gestation: 38.0 Gestational Age: AGA Weight: 3.13 kg Baby's Information Baby's Age at Visit: 5.5 months Baby's Provider or Clinic: Dr. Kwan Reason for Consult Reason for Consult: trying to re-lactate, trying SNS at breast Past Experience Past Experience: Yes (nursed her older son for a few weeks) Current Frequency of Day Feedings: about every three hours Frequency of Night Feedings: usually sleeps through the night Both Breasts: No (mom is not nursing) Pumping Pumping: Yes Quantity Pumped: a few drops Onsite Pre-Feed weight: 7.67 kg Assessments/Interventions Assessments/Interventions: Assessments/Interventions: Met with mom and this now 5.5 month old ex- term AGA baby for consult. Spoke to mom a few weeks ago and she reported having regrets she stopped nursing baby so soon after delivery and wanted to try to re-lactate. During that phone call it was suggested she start pumping 6 - 8 times/day, start Fenugreek and Blessed Thistle, spend extra time with baby [id number], and contact the [facility] in [place] to see if she would be a candidate for domperidone. She reports doing all of this except for the herbs b/c she was a candidate for the medication and was able to get it so quickly. She reports being able to collect a few drops in the bottle (as opposed to just in the flange) since she went up on the full dose of domperidone about a day ago and switched to a smaller flange size (19 mm). It's not enough to give to baby but it's a start. Today in clinic we attempted to have baby nurse at breast with an SNS and formula. We made several attempts- different positions, bait and switch with the bottle, nipple shield/no nipple shield but all were unsuccessful. Suggested mom try a few times/day at home, but not to force it or let anyone get too frustrated. She understands it may not be possible to entice baby back to the breast but is hopeful she can increase her supply enough to be able to wean down on the amount of formula baby takes. She was measured and it was suggested she stay with the 19 mm flanges or could go as low as 17 mm. Mom states she regrets not trying harder and is sad this is her last baby. Tried to encourage her that she should take time to grieve this period in her life that is ending and at the same time she can be happy about how healthy and happy baby is. We reviewed some information on how long domperidone can be taken and handout given. Encouraged her to reach out to the [facility] if she had more detailed questions and she will reach out to me with other questions/concerns. Meds Home Medications and Allergies Home Medications Medication Instructions Recorded Confirmed Type Saccharomyces boulardii 250 mg 20,000 mmu cells PO QDAY 08/27/22 10/29/22 History capsule (Digest Probiotic (S.boulardii)) cetirizine 10 mg capsule (Zyrtec) 10 mg PO QDAY PRN 08/27/22 10/29/22 History docosahexaenoic acid 200 mg 200 mg PO DAILY 08/27/22 10/29/22 History capsule ( DHA) fluoxetine 20 mg capsule 40 mg PO QDAY 08/27/22 10/29/22 History lysine 500 mg tablet (L-Lysine) 500 mg PO QDAY 08/27/22 10/29/22 History omega 8-uzf-rql-fish oil 60 mg-90 1 cap PO QDAY 08/27/22 10/29/22 History mg-500 mg capsule (Fish Oil) Allergies Allergy/AdvReac Type Severity Reaction Status Date / Time oxycodone [From Percocet] AdvReac Vomiting Verified 10/22/22 10:05
== END 2023-04-10 13:02 | disposition home or self-care (01) ==
LOC: OB LAC 13:01
PROVIDERS: PCP Family Medicine; Visit Provider Family Medicine
DX: Z39.1 Encounter for care and examination of lactating mother (principal)
CPT/HCPCS: 99211

== ENCOUNTER 2023-11-16 11:29 | Outpatient (CLI) | payer OTHER, SELFPAY | END 2023-11-16 11:30 | disposition home or self-care (01) | LOC: NFLDREF 11:30 | PROVIDERS: PCP Family Medicine; Visit Provider Obstetrics & Gynecology | DX: N93.9 Abnormal uterine and vaginal bleeding, unspecified (principal); Z87.59 Personal history of other complications of pregnancy, childbirth and the puerperium | CPT/HCPCS: 84702 ==

== ENCOUNTER 2023-12-16 07:14 | Day surgery (SDC) | payer OTHER, SELFPAY ==
[2023-12-16 07:38] LABS: Ur HCG Qualitative* Negative (Negative)
[2023-12-16 07:41] VITALS: BMI 31.8
[2023-12-16 07:52] VITALS: BP 102/68; PULSE 83; RESP 16; TEMP 36.5; O2SAT 97
[2023-12-16] MEDS: SODIUM CHLORIDE 0.9 % (FLUSH) 10 ML SYRINGE IVF (07:53)
[2023-12-16] MEDS: LACTATED RINGERS 1000 ML 1,000 ML 100 ML IV ×2 (07:54→09:12)
--- NOTE | 2023-12-16 08:54 | W.PM.H&PU ---
History & Physical Update History & Physical Update H&P Reviewed and patient assessed: No changes noted H&P Updates: Ms. Olivas is a 36yo seen in pre-op prior to hysteroscopy and dilation/curettage with Aye for suspected uterine polyp. Please see my consult note on 11/16 for complete details. She is s/p H&P on 12/13 with [facility] with no interval updates. We again reviewed the planned procedure in detail, including risks, benefits, post-op restrictions and return precautions. All questions answered. Written consent re-signed.
--- NOTE | 2023-12-16 08:57 | W.PM.GYNPROC ---
Procedure Note Date of procedure: 12/16/23 Pre-op diagnosis: Suspected endometrial polyp Procedure: Hysteroscopy, dilation and curettage, polypectomy with TruClear Complications: None Surgeon: Zachary Dupont MD Estimated blood loss (mL): 10 IV fluids (mL): 1,400 Pathology: specimen obtained, sent to pathology Condition: stable Disposition: same day Findings: Secretory appearing endometrium Small (<1cm) polypoid-like tissue at the anterior lower uterine segment Bilateral tubal ostia visualized and within normal limits Procedure Description: Procedure in detail: Patient was taken to the operating room with IV running. She was positioned in dorsal lithotomy position with her legs fully supported in Yellofin stirrups. Monitored anesthesia care was administered. She was prepped and draped in the usual sterile fashion. Exam under anesthesia was performed for the above-noted findings. Speculum was inserted. Cervix visualized and grasped along the anterior lip with a single-tooth tenaculum. A paracervical block was performed with a total of 20mL of 0.5% bupivacaine. Cervix was serially dilated to accommodate the TRUCLEAR hysteroscope. This was assembled with saline inflow and outflow in place. The line was flushed of bubbles. The hysteroscope was advanced through the cervix into the endometrial cavity for the above noted findings. The tissue morcellator was then inserted through the operating channel. Window lock was performed. Under direct visualization, the polyp was resected and endometrial cavity was circumferentially curetted with the tissue morcellator. The hysteroscope and morcellator were then removed from the uterus. Tenaculum was removed from the anterior lip of cervix. Hemostasis was noted with gentle pressure and silver nitrate. Patient tolerated procedure well. She was taken to recovery area in stable condition.
[2023-12-16] MEDS: BUPIVACAINE 0.5% 30 ML INJECTION (09:12)
[2023-12-16] MEDS: SILVER NITRATE APPLICATOR 1 EACH STICK..EA. TOPICAL (09:21)
[2023-12-16 09:35] VITALS: BP 95/65; PULSE 76; RESP 14; TEMP 36.6; O2SAT 97
--- NOTE | 2023-12-16 09:38 | W.ANESCHARGE ---
Anesthesia Charges Start Date/Time Anesthesia Start Date: 12/16/23 Anesthesia Start Time: 08:51 Stop Date/Time Anesthesia Stop Date: 12/16/23 Anesthesia Stop Time: 09:35
--- NOTE | 2023-12-16 09:39 | SUR.OPER ---
DEFICIT WAS 85ML
[2023-12-16 09:45] VITALS: BP 99/73; PULSE 73; RESP 16; O2SAT 97
[2023-12-16 10:00] VITALS: BP 101/65; PULSE 72; RESP 14; O2SAT 97
--- NOTE | 2023-12-16 10:33 | SUR.PHASEII ---
pt up to bathroom to void, tolerated toast and coffee, minimal bloody drainage noted on pad. Pt ambulated to car with .
--- NOTE | 2023-12-16 10:40 | W.ANESCHARGE ---
Anesthesia Charges Start Date/Time Anesthesia Start Date: 12/16/23 Anesthesia Start Time: 08:51 Stop Date/Time Anesthesia Stop Date: 12/16/23 Anesthesia Stop Time: 09:35
== END 2023-12-16 10:32 | disposition home or self-care (01) ==
PROVIDERS: PCP Family Medicine; Visit Provider Obstetrics & Gynecology
PROC: 0UDB8ZZ Extraction of Endometrium, Via Natural or Artificial Opening Endoscopic (ICD-10-PCS; CPT 58558; principal; 2023-12-16 08:30)
DX: N84.0 Polyp of corpus uteri (principal); N93.8 Other specified abnormal uterine and vaginal bleeding
CPT/HCPCS: 58558; 00952; 81025; 88305; A9270; J0665; J1100; J1885; J2250; J2405; J2704; J3010; J7120

== ENCOUNTER 2024-07-06 20:02 | Emergency (ER) | payer OTHER, SELFPAY ==
[2024-07-06 20:17] VITALS: BP 114/76; PULSE 93; RESP 18; TEMP 36.4; O2SAT 97; BMI 28.0
[2024-07-06 20:34] LABS: Appearance Urine Cloudy (Clear); Bilirubin Urine Negative (Negative); Blood Urine 3+ (Negative); Glucose Urine Negative (Negative); Ketones Urine Trace (Negative); Leukocyte Esterase Urine 1+ (Negative); Nitrite Urine Positive (Negative); Protein Urine 2+ (Negative); Specific Gravity Urine >= 1.030 (1.000-1.030); pH Urine 5.5 (5.0-8.5)
[2024-07-06 20:45] LABS: Color Urine Yellow (Yellow)
[2024-07-06 20:57] LABS: Bacteria Urine Many; RBC Urine >100 (0-2); Squamous Epithelial Cell Urine Few (None-Few); WBC Clumps Urine Moderate; WBC Urine 50-100 (0-5)
--- NOTE | 2024-07-06 21:00 | CRLHL7_ITS ---
For Patients: As a result of the Cures Act, medical imaging exams and procedure reports are released immediately into your electronic medical record. You may view this report before your referring provider. If you have questions, please contact your health care provider. INDICATION: Back pain, urinary tract infection, abdomen discomfort TECHNIQUE: CT Abdomen and pelvis without i.v. contrast. Coronal and sagittal reformats were obtained. COMPARISON: None FINDINGS: Lower chest: Unremarkable. Liver: Unremarkable. Spleen: Unremarkable. Pancreas: Unremarkable. Gallbladder: Unremarkable. Kidney: Unremarkable. No kidney or ureteral stones or obstruction seen. Adrenal: Unremarkable. Bowel: The stomach, small bowel, and colon are unremarkable. Previous appendectomy noted with no significant appendiceal stump identified. Vascular: Unremarkable. Lymph: Unremarkable. Peritoneum: Unremarkable. No pneumoperitoneum is seen. No significant ascites is noted. Pelvis: Unremarkable. Soft tissue: Unremarkable. Bone: Unremarkable for age. IMPRESSION: 1. No CT correlate for the patient`s symptoms seen. Dictated by James Zambrano MD @ 07/06/2024 9:58:35 PM Please note that all CT scans at this facility use dose modulation, iterative reconstruction, and/or weight-based dosing when appropriate to reduce radiation dose to as low as reasonably achievable. Dictated by: James Zambrano MD @ 07/06/2024 21:58:38 (Electronically Signed)
[2024-07-06] MEDS: PHENAZOPYRIDINE HCL 200 MG TABLET PO (21:04)
--- NOTE | 2024-07-06 21:55 | ED_ITS ---
HPI - General Adult General Date Seen: 07/06/24 Chief complaint: Back Injury/Pain Stated complaint: Blood in urine, bloating Time Seen by Provider: 07/06/24 20:51 Source: patient Mode of arrival: ambulatory Limitations: no limitations History of Present Illness HPI narrative: Patient is a 28-year-old generally healthy young woman here for evaluation of urinary symptoms and back pain. She tells me she developed some pain across her lower thoracic back yesterday. This was really not on 1 side or the other just completely across the back and she says she did not think much of it because she has had a little bit of a cough and she thought she probably just had some muscular pain from coughing. A few hours prior to coming in [facility], she develops significant urinary symptoms with urgency, frequency, hematuria and dysuria. She has some pelvic cramping as well. She has no suspicion of , she just had her period. She has not had a urinary tract infection for very long time. She does not have a history of kidney stones that she knows of. She has had a couple of C-sections, no other abdominal surgeries. She does not smoke or drink, here today with her . She says she bought some azo at the store but didn/t end up taking it, she says she called the clinic and because of the blood in your urine they recommended that she come in. Related Data Home Medications ?Medication ?Instructions ?Recorded ?Confirmed cetirizine 10 mg capsule (Zyrtec) 10 mg PO QDAY PRN 08/27/22 07/06/24 lysine 500 mg tablet (L-Lysine) 1,000 mg PO QDAY 08/27/22 07/06/24 fluoxetine 20 mg capsule 60 mg PO QDAY 11/16/23 07/06/24 hydroxyzine pamoate 50 mg capsule 50 - 100 mg PO QHS PRN 12/15/23 03/02/24 B-complex with vitamin C 1 tab PO QDAY 03/03/24 03/03/24 bupropion HCl 150 mg 24 hr tablet, 150 mg PO QAM 03/03/24 07/06/24 extended release (Wellbutrin XL) dextroamphetamine-amphetamine 10 10 mg PO DAILY 07/06/24 07/06/24 mg tablet (Adderall) Allergies Allergy/AdvReac Type Severity Reaction Status Date / Time oxycodone [From Percocet] AdvReac Vomiting Verified 07/06/24 20:21 Review of Systems Status of ROS: Reports: 10 or more systems reviewed and unremarkable except as noted in History and below [facility] Medical History Depression ?F32.A - Depression, unspecified (ICD-10) Radial styloid tenosynovitis ?M65.4 - Radial styloid tenosynovitis [de Quervain] (ICD-10) Anxiety ?F41.9 - Anxiety disorder, unspecified (ICD-10) Gestational diabetes mellitus ?O24.419 - Gestational diabetes mellitus in , unspecified control (ICD-10) Elevated LFTs ?R79.89 - Other specified abnormal findings of blood chemistry (ICD-10) Chest pressure ?R07.89 - Other chest pain (ICD-10) Headache in ?O26.899 - Other specified related conditions, unspecified trimester (ICD-10) ?R51.9 - Headache, unspecified (ICD-10) Surgical History Hx of dilation and curettage ?Z98.890 - Other specified postprocedural states (ICD-10) Hx of carpal tunnel repair ?Z98.890 - Other specified postprocedural states (ICD-10) Hx of appendectomy ?Z90.49 - Acquired absence of other specified parts of digestive tract (ICD- 10) History of left knee surgery (2016) ?Z98.890 - Other specified postprocedural states (ICD-10) History of section (04/2019) ?Z98.891 - History of uterine scar from previous surgery (ICD-10) History of delivery (10/29/22) ?Z98.891 - History of uterine scar from previous surgery (ICD-10) Family History Mother Diabetes Social History Smoking Status: Former smoker Do you use any of these nicotine containing products: None How often do you have a drink containing alcohol: never AUDIT-C Alcohol total score: 0 Non-prescribed substance use: denies use Exam Narrative: Exam Narrative: Vital signs as noted above. In general, an alert, well-appearing patient. Head: Normocephalic, atraumatic. Eyes: Pupils are equal reactive. Extraocular movements are full. Conjunctivae are normal. ENT: Mucous membranes are moist. Throat is normal. Neck: Supple without lymphadenopathy. Heart: Regular rate and rhythm. No murmur or rub. Lungs: Clear bilaterally. No increased work of breathing, crackles or wheezes. Abdomen: Soft and nondistended. She has some mild tenderness over the bladder, no rebound guarding or rigidity. No right upper quadrant tenderness, maybe mild right CVA tenderness. Extremities: Well perfused. No edema. No calf tenderness. Pulses intact. Neurologic: Patient is alert and oriented to person and place. Speech is fluent. Face is symmetric. Moves all extremities equally. Affect: Normal. Skin: Warm and dry. Well perfused. Const: Vital Signs, click to edit/add: Vital Signs - 24 hr 07/06/24 20:17 Temperature 97.6 F Pulse Rate [Right Pulse Oximeter] 93 Respiratory Rate 18 Blood Pressure [Ri ght Upper Arm] 114/76 Pulse Oximetry 97 Oxygen Delivery Me thod Room Air Documenting provider has reviewed patient's vital signs: yes Course Course ED Course: Overall, I am most suspicious of significant urinary tract infection. Her presentation is less suspicious for pyelonephritis, kidney stone, or other renal pathology, however with the back pain that she has been having I did decide to do CT scan. I think if that does not show evidence of kidney stone or pyelonephritis that it would be reasonable just to treat her for bladder infection. I gave her phenazopyridine with improvement in her symptoms. Discussed findings of urinalysis and CT with her. She does continue to have a little bit of pain on that right side but says she does not feel like she needs any other medications for that at this time. Offered ibuprofen or Tylenol which she declines. She is not interested in IV medications or fluids, she would like to go home and see how she does over the next day or 2. I prescribed Macrobid, she can continue to use azo, ibuprofen or Tylenol if needed. Discussed reasons to return including fevers, shaking chills, worsening or severe pain, vomiting etcetera. Vital Signs Vital signs: Initial Vital Signs Temperature 97.6 F 07/06/24 20:17 Temperature Source Temporal Artery Scan 07/06/24 20:17 Pulse Rate 93 07/06/24 20:17 Pulse Rhythm Regular 07/06/24 20:17 Respiratory Rate 18 07/06/24 20:17 Blood Pressure 114/76 07/06/24 20:17 Blood Pressure Mean 88 07/06/24 20:17 Blood Pressure Position Sitting 07/06/24 20:17 Pulse Oximetry 97 07/06/24 20:17 Oxygen Delivery Method Room Air 07/06/24 20:17 Vital Signs Temperature 97.6 F 07/06/24 20:17 Pulse Rate 93 07/06/24 20:17 Respiratory Rate 18 07/06/24 20:17 Blood Pressure 114/76 07/06/24 20:17 Pulse Oximetry 97 07/06/24 20:17 Oxygen Delivery Method Room Air 07/06/24 20:17 Temperature 97.6 F 07/06/24 20:17 Pulse Rate 93 07/06/24 20:17 Respiratory Rate 18 07/06/24 20:17 Blood Pressure 114/76 07/06/24 20:17 Pulse Oximetry 97 07/06/24 20:17 Oxygen Delivery Method Room Air 07/06/24 20:17 Medications Administered Medications: Discontinued Medications Generic Name Dose Route Start Last Admin Trade Name Naeem PRN Reason Stop Dose Admin Phenazopyridine HCl 200 mg 07/06/24 21:00 07/06/24 21:04 Phenazopyridine Hcl 200 Mg Tablet PO 07/06/24 21:01 200 mg ONCE ONE Administration Medical Decision Making Lab Data Labs: Lab Results 07/06/24 Range/Units 20:08 Urine Color Yellow (Yellow) Urine Appearance Cloudy A (Clear) Urine pH 5.5 (5.0-8.5) Ur Specific Se[place]our >= 1.030 (1.000-1.030) Urine Protein 2+ A (Negative) Urine Glucose (UA) Negative (Negative) Urine Ketones Trace A (Negative) Urine Blood 3+ A (Negative) Urine Nitrite Positive A (Negative) Urine Bilirubin Negative (Negative) Urine Urobilinogen 1.0 (0.2-1.0) Ur Leukocyte Esterase 1+ A (Negative) Urine RBC >100 A (0-2) Urine WBC 50-100 A (0-5) Urine WBC Clumps Moderate A (None) Ur Squamous Epith Cells Few (None-Few) Urine Bacteria Many A (None) Discharge Plan Discharge Clinical Impression: Urinary tract infection Patient Disposition: Home, Self-Care Condition: Stable Instructions: Urinary Tract Infection in Women (DC) Additional Instructions: Antibiotic as prescribed. Continue azo over the next 1-2 days. Symptoms should gradually improve over 48 hours. If you have no improvement after 48 hours, you should be seen again. We will send a culture and if the culture grows an organism that does not respond to Macrobid, we will call you so that it can be changed. If at any time you have severe uncontrolled pain, fevers, shaking chills, vomiting or other acute worsening, return to the emergency department. Prescriptions: No Action Zyrtec 10 mg capsule 10 mg PO QDAY PRN lysine [L-Lysine] 500 mg tablet 1,000 mg PO QDAY fluoxetine 20 mg capsule 60 mg PO QDAY B-complex with vitamin C Tablet 1 tab PO QDAY bupropion HCl [Wellbutrin XL] 150 mg tablet extended release 24 hr 150 mg PO QAM hydroxyzine pamoate 50 mg capsule 50 - 100 mg PO QHS PRN dextroamphetamine-amphetamine [Adderall] 10 mg tablet 10 mg PO DAILY Follow Up/Referrals: Lorna Kwan MD [Primary Care Provider] - Stand Alone Forms: [employer] Info Instructions
[2024-07-06 22:11] VITALS: BP 118/74; PULSE 84; RESP 18; TEMP 36.4; O2SAT 97
[2024-07-06 22:12] VITALS: BP 118/74; PULSE 84; RESP 18; TEMP 36.4
== END 2024-07-06 22:12 | disposition home or self-care (01) ==
PROVIDERS: Emergency Provider Emergency Medicine; PCP Family Medicine
DX: N39.0 Urinary tract infection, site not specified (principal)
CPT/HCPCS: 74176; 81001; 87086; 87186; 99283; 99284; A9270